=== PATIENT | male | born 1965 | race Two or more races ===

== ENCOUNTER 2019-04-09 13:09 | Outpatient (CLI) | payer MEDICAID ==
[~2019-04-09] VITALS: Ht 170.2 cm; Wt 73.0 kg
[2019-04-09 13:35] VITALS: BP 120/79
--- NOTE | 2019-04-09 19:45 | Consultation ---
DATE OF CONSULTATION: 04/09/2019 GASTROENTEROLOGY CONSULTATION CONSULTING PHYSICIAN: Avel Malagon M.D. CHIEF COMPLAINT: Referral for screening colonoscopy, chronic GERD. HISTORY OF PRESENT ILLNESS: This is a 53-year-old male, who was referred to us by for evaluation of screening colonoscopy. Also, the patient has chronic GERD. PAST MEDICAL HISTORY: 1. H. pylori gastritis. 2. Hypercholesterolemia. PAST SURGICAL HISTORY: There was in the liver, which was removed. MEDICATIONS: Please see medication reconciliation list. ALLERGIES: No known drug allergies. FAMILY HISTORY: No family history of GI malignancies. SOCIAL HISTORY: The patient drinks socially. Occasionally drugs and smoking. No IV drug abuse. REVIEW OF SYSTEMS: Positive for GERD. PHYSICAL EXAMINATION: VITAL SIGNS: Temperature 98.5, blood pressure is 120/79, pulse is 84, respirations 20. HEENT: Normocephalic and atraumatic. Scleral anicteric. NECK: Supple. No evidence of obvious lymphadenopathy. CARDIOVASCULAR: Regular rate and rhythm. Plus S1 and S2. No obvious murmurs. LUNGS: Clear to auscultation bilaterally. ABDOMEN: Positive bowel sounds. Soft and nontender. No rebound. No guarding. No peritoneal sign. EXTREMITIES: No cyanosis. No clubbing. No edema. ASSESSMENT AND PLAN: This is a 53-year-old male with chronic GERD and also need screening colonoscopy. Plan to perform EGD and colonoscopy when authorization is obtained. Avel Malagon M.D. DR: ABISAI JOB#: [id number] CC:
[2019-04-10] MEDS ORDERED: CHOLESTEROL MED (11:41)
[2019-04-10] MEDS ORDERED: COQ-10100 M1 PO (11:41)
[2019-04-10] MEDS ORDERED: ZANTAC150 MG PO (11:41)
[2019-04-10] MEDS ORDERED: MULTIVITAMINS1 EAC2 ORAL (11:41)
[2019-04-10] MEDS ORDERED: ASPIRIN EC81 MG ORAL (11:41)
[2019-04-10] MEDS ORDERED: FISH OIL CAP1000 MG ORAL (11:41)
== END 2019-04-09 15:09 | disposition home or self-care (01) ==
LOC: PAN 13:09
DX: K21.9 Gastro-esophageal reflux disease without esophagitis (principal); E78.00 Pure hypercholesterolemia, unspecified
CPT/HCPCS: G0463

== ENCOUNTER 2019-07-02 12:56 | Outpatient (CLI) | payer MEDICAID ==
[~2019-07-02 12:56] MED LIST: ASPIRIN EC81 MG ORAL; CHOLESTEROL MED; COQ-10100 M1 PO; FISH OIL CAP1000 MG ORAL; MULTIVITAMINS1 EAC2 ORAL; ZANTAC150 MG PO
--- NOTE | 2019-07-02 13:51 | General Progress Note ---
Assessment/Plan Assessment/Plan: HP neg gastritis one rectal polyp repeat colon in 5 years ppi daily Subjective ROS Limited/Unobtainable: Yes Allergies: Coded Allergies: No Known Allergies (Unverified , 04/10/19) Objective General Appearance: alert EENT: normal ENT inspection Neck: supple Cardiovascular: normal rate Respiratory/Chest: decreased breath sounds Abdomen: normal bowel sounds, non tender, soft Extremities: non-tender Avel Malagon MD Jul 02, 2019 13:50
[2019-07-02 15:31] VITALS: BP 135/84
== END 2019-07-02 16:53 | disposition home or self-care (01) ==
LOC: PAN 12:56
DX: K29.70 Gastritis, unspecified, without bleeding (principal); K62.1 Rectal polyp
CPT/HCPCS: 99212